=== PATIENT | female | born 1975 | race Caucasian/White ===

== ENCOUNTER 2017-02-09 17:25 | Emergency (ER) | payer OTHER ==
[~2017-02-09] VITALS: Ht 165.1 cm; Wt 104.1 kg
[~2017-02-09 17:25] MED LIST: ADDERALL30 MG PO
[2017-02-09 18:31] LABS: HEMATOCRIT 47.8 % (36.0-46.0); MCH 28.9 PG (29.0-34.0); MCHC 32.8 G/DL (30.0-36.0); MCV 87.9 FL (83-99); PLATELET COUNT 396 K/uL (156-360); RBC DIS.WIDTH-CV 11.9 % (11.8-14.6); RBC DIS.WIDTH-SD 38.4 % (39-53); RED BLOOD COUNT 5.44 M/uL (3.80-5.20); WHITE BLOOD COUNT 13.4 K/uL (4.1-10.2)
[2017-02-09 18:40] LABS: CHLORIDE 105 mEq/L (99-109); SODIUM 140 mEq/L (136-147)
[2017-02-09 18:41] LABS: GLUCOSE 115 mg/dL (70-99)
[2017-02-09 18:43] LABS: ANION GAP 8 MEQ/L (2-14)
[2017-02-09 18:45] LABS: GFR ESTIMATE (CALCULATED) > 59 mL/min/
[2017-02-09 18:46] LABS: UREA NITROGEN (BUN) 13 mg/dL (9-23)
[2017-02-09 18:54] LABS: ADD MIUA? YES; BILIRUBIN NEGATIVE; BLOOD MODERATE; COLOR YELLOW ((YELLOW)); GLUCOSE (STRIP) NEGATIVE; KETONES NEGATIVE; LEUKOCYTES NEGATIVE; NITRITE NEGATIVE; PROTEIN (STRIP) NEGATIVE; UROBILINOGEN 0.2 MG/DL (0.2-1.0)
[2017-02-09 18:56] LABS: BACTERIA NONE SEEN /HPF; EPITHELIAL CELLS RARE /HPF; MUCUS TRACE /LPF; RED BLOOD CELLS 0-5 /HPF (0-5); WHITE BLOOD CELLS 0-5 /HPF (0-5)
[2017-02-09 18:56] LABS: QUANTITATIVE HCG < 4.0 MIU/ML
[2017-02-09] MEDS ORDERED: NORCO 5/3251 TABLET PO (20:43)
[2017-02-09] MEDS ORDERED: NAPROSYN500 MG PO (20:43)
[2017-02-09 21:40] VITALS: BP 140/88
== END 2017-02-09 21:41 | disposition home or self-care (01) ==
LOC: EME 17:25
PROVIDERS: Nurse Practitioner Family
DX: M54.9 Dorsalgia, unspecified (principal); R31.9 Hematuria, unspecified; D72.829 Elevated white blood cell count, unspecified
CPT/HCPCS: 74176; 80048; 81003; 84702; 85027; 99281; 99285; J1885; J3010; J7030

== ENCOUNTER 2017-09-20 05:39 | Day surgery (SDC) | payer OTHER ==
[~2017-09-20] VITALS: Ht 165.1 cm; Wt 102.1 kg
[~2017-09-20 05:39] MED LIST changes: +ANUSOL HC,ANUCO25 MG PR; +HEMMOREX-HC25 MG PR; +MULTIPLE VITAM1 EACH PO; +NAPROSYN500 MG PO; +NORCO 5/3251 TABLET PO; +VIVELLE-DOT0.05 MG TD; +VYVANSE70 MG PO
[2017-09-20 06:51] VITALS: BP 129/83
[2017-09-20] MEDS ORDERED: HYDROCODON-ACE1 EAC7 PO (08:38)
[2017-09-20 10:30] VITALS: BP 133/86
[2017-09-20 11:27] VITALS: BP 112/68
[2017-09-20 11:47] VITALS: BP 133/90
== END 2017-09-20 11:55 | disposition home or self-care (01) ==
LOC: SDC 05:39
DX: K60.2 Anal fissure, unspecified (principal); K64.8 Other hemorrhoids; K64.4 Residual hemorrhoidal skin tags; E66.9 Obesity, unspecified; Z79.890 Hormone replacement therapy; F17.200 Nicotine dependence, unspecified, uncomplicated; Z80.0 Family history of malignant neoplasm of digestive organs; Z82.49 Family history of ischemic heart disease and other diseases of the circulatory system; Z83.3 Family history of diabetes mellitus; Z83.49 Family history of other endocrine, nutritional and metabolic diseases; Z80.6 Family history of leukemia; Z82.3 Family history of stroke; Z80.51 Family history of malignant neoplasm of kidney; Z88.0 Allergy status to penicillin; Z88.2 Allergy status to sulfonamides; Z88.8 Allergy status to other drugs, medicaments and biological substances
CPT/HCPCS: 88304; J0131; J0585; J1100; J1170; J1885; J2250; J2405; J3010; S0020; S0074

== ENCOUNTER 2017-12-13 07:37 | Day surgery (SDC) | payer OTHER, BC ==
[~2017-12-13] VITALS: Ht 165.1 cm; Wt 98.4 kg
[~2017-12-13 07:37] MED LIST changes: +HYDROCODON-ACE1 EAC7 PO; +OXYCODONE-ACET1 EACH PO
[2017-12-13 07:57] VITALS: BP 127/91
[2017-12-13] MEDS ORDERED: HYDROCODON-ACE1 EAC7 PO (11:17)
[2017-12-13 12:50] VITALS: BP 131/72
[2017-12-13 13:31] VITALS: BP 115/68
== END 2017-12-13 13:33 | disposition home or self-care (01) ==
LOC: SDC 07:37
DX: K60.2 Anal fissure, unspecified (principal); K64.4 Residual hemorrhoidal skin tags; E66.9 Obesity, unspecified; Z68.36 Body mass index [BMI] 36.0-36.9, adult; Z88.0 Allergy status to penicillin; Z88.2 Allergy status to sulfonamides; F17.200 Nicotine dependence, unspecified, uncomplicated
CPT/HCPCS: 88304; J0131; J0295; J0330; J0585; J1100; J1885; J2250; J2405; J3010; J7050; S0020